=== PATIENT | female | born 1945 | race Caucasian/White ===

== ENCOUNTER 2017-06-26 11:09 | Day surgery (SDC) | payer MEDICARE ==
[~2017-06-26 11:09] MED LIST: Acetaminophen TAB* 325 MG PO PRN; Buffered Lidocaine 0.9% SYRIN* 5 ML/SYR SYRINGE INTRADERM ONE
[2017-06-26] MEDS ORDERED: fentaNYL* 50 MCG/ML 2 ML VIAL (100 MCG VIAL) ONE (12:14)
[2017-06-26] MEDS ORDERED: Midazolam* 1 MG/ML 2 ML VIAL (2 MG) ONE ×2 (12:14→12:43)
[2017-06-26] MEDS ORDERED: Phenylephrine 2.5% OPTH.SOL* 2 ML BTL ONE (13:25)
[2017-06-26] MEDS ORDERED: Ketorolac 0.5% OPHTH (NF) 0.5 % 5 ML BTL ONE (13:25)
[2017-06-26] MEDS ORDERED: Buffered Lidocaine 0.9% SYRIN* 5 ML/SYR SYRINGE ONE (13:25)
[2017-06-26] MEDS ORDERED: Lidocaine 1% MPF* 2 ML VIAL ONE (13:25)
[2017-06-26] MEDS ORDERED: Neomycin/Polymy/Dex OPHTH.OIN* 3.5 GM ONE (13:25)
[2017-06-26] MEDS ORDERED: Tropicamide 1% OPTH.SOL* BTL ONE (13:25)
[2017-06-26] MEDS ORDERED: Tetracaine 0.5% OPTH.SOL 4 ML* 1 DROP BTL ONE (13:25)
[2017-06-26] MEDS ORDERED: Cyclopentolate 1% OPTH.SOL* 2 ML BTL ONE (13:25)
[2017-06-26 13:36] VITALS: BP 134/64
--- NOTE | 2017-06-27 04:57 | OP ---
DATE OF OPERATION: 06/26/17 - [facility] DATE OF : 43 SURGEON: Marlon Dalal MD JEWEL BEARING TURNER: None. ANESTHESIOLOGIST: Jericho Donnelly MD ANESTHESIA: Topical with intravenous sedation. PRE-OP DIAGNOSIS: Cataract with glaucoma, right eye. POST-OP DIAGNOSIS: Cataract with glaucoma, right eye. OPERATIVE PROCEDURE: Phacoemulsification and cataract extraction with posterior chamber intraocular lens implant, right eye, and iStent, right eye. COMPLICATIONS: None. BLOOD LOSS: None. DESCRIPTION OF PROCEDURE: The patient was brought to the operating room and received a small amount of intravenous sedation. A drop of tetracaine was placed into her right eye. The patient was prepped and draped in the usual sterile fashion for ophthalmic surgery and attention was directed to the right eye where a speculum was placed. A paracentesis was created at the 11 o'clock position and 0.1 cc of 1% preservative-free lidocaine was injected into the anterior chamber followed by DisCoVisc. The eye was digitally stabilized while a 2.75-mm keratome was used to create a triplanar clear corneal incision at the 9 o'clock position. A continuous curvilinear capsulorrhexis was created with a cystotome and Utrata forceps. BSS on a cannula was used to hydrodissect the lens from the capsule. Phacoemulsification was performed in a divide-and- conquer technique to create 4 fragments which were removed. Residual cortical material was removed with irrigation and aspiration. DisCoVisc was used to inflate the capsular bag. An AU00T0 8.5 diopter lens was folded and inserted into the capsular bag. Supplemental DisCoVisc was placed into the anterior chamber to deepen the angle. More DisCoVisc was placed on the surface of the cornea. The patient's head was rotated away from the surgeon and the microscope was rotated toward the surgeon. Gonioprism was placed on the surface of the eye. Under direct observation, an iStent was inserted into the nasal trabecular meshwork. The gonioprism was removed. The head and the microscope returned to a neutral position. Viscoelastic removed from the eye. BSS on a cannula was used to hydrate the corneal stroma and seal the wound. At the end of the case, the pupil was round. The lens was centered and stable. The iStent was in good position. The eye pressure appeared normal and the wound was water tight. The speculum was removed. Topical Maxitrol ointment was placed on the surface of the eye. The eye was closed, patched, and shielded, and the patient was sent to the recovery room in stable condition with postop instructions and followup appointment given. [id number]/[facility] #: [id number] ANIRUDH
== END 2017-06-26 13:32 | disposition home or self-care (01) ==
LOC: OREAST 11:09
PROVIDERS: ATTEND Ophthalmology
DX: H25.11 Age-related nuclear cataract, right eye (principal); H40.89 Other specified glaucoma; B33.24 Viral cardiomyopathy; H54.8 Legal blindness, as defined in USA; Z88.1 Allergy status to other antibiotic agents; Z88.5 Allergy status to narcotic agent; Z88.8 Allergy status to other drugs, medicaments and biological substances; Z79.82 Long term (current) use of aspirin; Z87.891 Personal history of nicotine dependence
CPT/HCPCS: A9270-GY; C1783; J2250; J3010; V2632

== ENCOUNTER 2017-07-03 06:49 | Day surgery (SDC) | payer MEDICARE ==
[2017-07-03] MEDS ORDERED: Midazolam* 1 MG/ML 5 ML VIAL (5 MG) ONE (07:17)
[2017-07-03] MEDS ORDERED: Lidocaine 1% MPF wEPI 200,000* 30 ML SDV ONE (07:47)
[2017-07-03] MEDS ORDERED: Propofol* 10 MG/ML 20 ML BTL IV PUSH ONE (08:06)
[2017-07-03] MEDS ORDERED: Midazolam* 1 MG/ML 2 ML VIAL (2 MG) ONE (08:17)
[2017-07-03 09:06] VITALS: BP 143/71
[2017-07-03] MEDS ORDERED: Tetracaine 0.5% OPTH.SOL 4 ML* 1 DROP BTL ONE (11:14)
[2017-07-03] MEDS ORDERED: Cyclopentolate 1% OPTH.SOL* 2 ML BTL ONE (11:14)
[2017-07-03] MEDS ORDERED: Flurbiprofen 0.03% OPTH.SOL* 2.5 ML BTL ONE (11:14)
[2017-07-03] MEDS ORDERED: Lidocaine 1% MPF* 2 ML VIAL ONE (11:14)
[2017-07-03] MEDS ORDERED: Tropicamide 1% OPTH.SOL* BTL ONE (11:14)
[2017-07-03] MEDS ORDERED: Neomycin/Polymy/Dex OPHTH.OIN* 3.5 GM ONE (11:14)
[2017-07-03] MEDS ORDERED: Buffered Lidocaine 0.9% SYRIN* 5 ML/SYR SYRINGE ONE (11:14)
[2017-07-03] MEDS ORDERED: Phenylephrine 2.5% OPTH.SOL* 2 ML BTL ONE (11:14)
--- NOTE | 2017-07-03 18:45 | OP ---
OPERATIVE REPORT: DATE OF OPERATION: 07/03/17 DATE OF : 43 SURGEON: Marlon Dalal MD. FILTER TANK TENDER HELPER HEAD: None. ANESTHESIA: Local, topical and IV sedation. PRE-OP DIAGNOSIS: Cataract, glaucoma, tarsorrhaphy, status post corneal transplant left eye. POST-OP DIAGNOSIS: Cataract, glaucoma, tarsorrhaphy, status post corneal transplant left eye. OPERATIVE PROCEDURE: Release of tarsorrhaphy, cataract extraction with posterior chamber lens impla nt, and iStent placement left eye. COMPLICATIONS: None. BLOOD LOSS: None. DESCRIPTION OF PROCEDURE: The patient was brought to the operating room and received a small amount of intravenous sedation. A drop of tetracaine was placed in her left eye. She was prepped and mitzi ped in the usual sterile fashion for ophthalmic surgery. A small amount of 1% lidocaine with epinep hrine was injected into the lateral canthal angle where the tarsorrhaphy existed. A Mckinley scissor s was used to lyse the tarsorrhaphy. Hemostasis was achieved with pressure and very gentle cauteriz ation. At this point, an eyelid speculum was placed in left eye. A temporarily decentered corneal transplant was noted. The eye was well dilated and cataract existed. A paracentesis was created at the 5 o'clock position peripherally to avoid the graft. Approximately 1 cc of 1% preservative-free lidocaine was injected into the anterior chamber followed by DisCoVisc. The eye was digitally stab ilized while a 2.75-mm wound was created in a biplanar fashion using a keratome at the 3 o'clock pos ition. Care was taken again to avoid the graft. A continuous curvilinear capsulorrhexis was create d with a cystotome and Utrata forceps. BSS on a cannula was used to hydrodissect the lens from the capsule. Phacoemulsification was performed in a [id number] technique to create 4 fragments which were removed. Residual cortical material was removed with irrigation and aspiration. DisCoVi sc was used to inflate the capsular bag. An MN60MA +1.0 diopter lens was manually folded and insert ed through the wound into the capsular bag. The lens was unfolded in position. The trailing haptic was dunked into place using a curved tying forceps. Supplemental DisCoVisc was used to deepen the anterior chamber and coat the corneal surface. The patient's head was rotated away from the surgeon and the microscope was rotated toward the surgeon. A gonioprism was gently placed on the surface o f the eye. Under direct visualization, an iStent was inserted into the inferonasal trabecular meshw ork. A small amount of bleeding occurred. The prism and I Stent inserted were removed. The patient 's head and the microscope were returned to a neutral position. Irrigation and aspiration was perfor med to remove viscoelastic from the eye. BSS on a cannula was used to hydrate the corneal stroma an d seal the wound. At the end of the case, the pupil was round, the lens was centered, the iStent wa s then placed, the eye pressure appeared normal and the wound appeared water tight. Topical Maxitrol ointment was placed on the surface of the eye. The eye was closed, patched, and shielded, and the patient was sent to the recovery room in stable condition with postop instructions and followup appo intment given. [id number]/[facility] #: [id number]
== END 2017-07-03 09:15 | disposition home or self-care (01) ==
LOC: OREAST 06:49
PROVIDERS: ATTEND Ophthalmology
DX: H25.12 Age-related nuclear cataract, left eye (principal); H40.89 Other specified glaucoma; Z87.891 Personal history of nicotine dependence; I42.8 Other cardiomyopathies; I49.3 Ventricular premature depolarization
CPT/HCPCS: A9270-GY; C1783; J2001; J2250; J2704; V2632